=== PATIENT | female | born 1945 ===

== ENCOUNTER → 2023-04-04 14:18 | Outpatient (BNVA) | payer MEDICARE, MEDICAID, SELFPAY | PROVIDERS: PCP Internal Medicine; Visit Provider Nurse Practitioner Family | DX: R25.1 Tremor, unspecified (principal); R49.0 Dysphonia; F41.9 Anxiety disorder, unspecified; I65.29 Occlusion and stenosis of unspecified carotid artery | CPT/HCPCS: 99202 ==

== ENCOUNTER → 2023-08-11 14:30 | Outpatient (BNVA) | payer MEDICARE, MEDICAID, SELFPAY | PROVIDERS: Visit Provider Nurse Practitioner Family | DX: R56.9 Unspecified convulsions (principal); R25.1 Tremor, unspecified; R51.9 Headache, unspecified | CPT/HCPCS: 99212 ==

== ENCOUNTER 2025-06-09 13:54 | Outpatient (AMB) | payer MEDICARE, MEDICAID, SELFPAY ==
--- NOTE | 2025-06-09 13:53 | MHC.OFFVIS ---
Vital Signs 06/09/25 13:58 Weight 135 lb BP 120/70 Blood Pressure Location Rt brachial Position Sitting Pulse 78 Pulse Source Pulse Oximeter Pulse Oximetry (%) 98 Oxygen Delivery Method Room Air Intake Visit Reasons: Follow up Supply Chain Program Manager Required: No Accompanied by: Self / Same As Patient Allergies aspirin Allergy (Severe, Verified 06/09/25 14:03) Nausea and Vomiting Medication List - Last Reconciled 06/09/25 by Ying Burgos MD amlodipine 10 mg PO DAILY atorvastatin mg PO budesonide-formoterol 160-4.5 mcg/actuation 2 puffs inhalation BID carbidopa-levodopa 25-100 mg 1 tab PO BID 30 days cetirizine (All Day Allergy (cetirizine)) 10 mg PO DAILY PRN cholecalciferol (vitamin D3) 25 mcg PO DAILY cyanocobalamin (vitamin B-12) 1,000 mcg PO DAILY estradiol 0.01%(0.1mg/gram) vaginal gabapentin 100 mg PO DAILY hydrochlorothiazide 25 mg PO DAILY levetiracetam (Keppra) 1,000 mg PO BID 30 days losartan 50 mg PO DAILY magnesium oxide 400 mg PO BEDTIME 30 days melatonin 3 mg PO DAILY 30 days omeprazole 20 mg PO BID ondansetron HCl 4 mg PO Q6H PRN 30 days riboflavin (vitamin B2) 400 mg PO DAILY 30 days tiotropium bromide 2.5 mcg/actuation (Spiriva Respimat) inhalation trazodone 25 mg PO BEDTIME PRN HPI Comments Details: 79-yr-old female presents for f/u visit after 2 years .Patient is upset that she was not able to come for a follow up, she still reports lightheadedness . she has 2 episodes of possible seizures per month. she describes episodes of feeling lightheaded ,nauseous followed by slumping down. Her tremors are stable - no worsening. She reports that she is having more headaches- 1-2 /week. she has chronic sleep issues. She states she is only sleeping 2-3 hours per night. Denies daytime naps. She is often tired. Can wake up gasping. She is prone to dozing off in the evening while watching TV, then goes to bed around 12am and tosses snd turns. Always wakes up after c couple of hours, and then just rests/dozes in bed until she gets up around 5:30am. She had vascular consult f/u- she thinks that the plan is to just monitor her but is not sure. PFSH Medical History Insomnia Carotid stenosis Surgical History H/O: hysterectomy H/O laparoscopy Hx of colonoscopy Hx of appendectomy Family History Father Cancer Mother Tuberculosis Social History Alcohol intake: former Physical Exam Vital Signs: Last Vital Signs Pulse 78 06/09/25 13:58 BP 120/70 06/09/25 13:58 Pulse Ox 98 06/09/25 13:58 Oxygen Delivery Method Room Air 06/09/25 13:58 Const General: cooperative and no acute distress Orientation/consciousness: patient oriented x3 HEENT Head: Yes normocephalic Resp Effort & Inspection: normal respiratory effort and able to speak in complete sentences Neuro Other: Occassional stutter, hypophonia BUE postural tremor. General: patient oriented x3 and CN's II-XI intact bilaterally Motor exam (neuro): 5/5 motor strength present throughout General: patient oriented x3, gait normal and CN's II-XI intact bilaterally Cognition (Neuro): normal cognition Psych Appearance: grossly normal Mental Status: mental status grossly normal Affect: normal affect Attitude: cooperative Assessment & Plan Assessment & Plan (1) Seizure: Code(s): R56.9 - Unspecified convulsions Category: Medical (2) Tremor: Code(s): R25.1 - Tremor, unspecified Category: Medical (3) Headache: Code(s): R51.9 - Headache, unspecified Category: Medical Plan Continue Keppra 1000mg bid- for seizure. I will trial her on Mirtazapine 7,5 mg qhs Continue prn Zofran. Discussed strategies to improve sleep hygiene- avoid staying up late and falling asleep on the couch. Note- previous in-lab PSG in 2017- was normal. Will request vascular surgery notes- ? plan r/t carotid stenosis. f/u in 3-4 months or sooner prn. Orders: Referrals Vascular Surgery Referral I65.29 - Occlusion and stenosis of unspecified carotid artery Medications: New mirtazapine 7.5 mg PO BEDTIME 30 tabs 3RF Refilled levetiracetam (Keppra) 1,000 mg PO BID 60 tabs 6RF 30 days Discontinued riboflavin (vitamin B2) Discontinued Reason: Patient no longer taking 400 mg PO DAILY 30 days 30 tabs 6RF magnesium oxide may hold for loose stools Discontinued Reason: Patient no longer taking 400 mg PO BEDTIME 30 days 30 tabs 6RF carbidopa-levodopa 25-100 mg Discontinued Reason: Patient no longer taking 1 tab PO BID 30 days 60 tabs 6RF melatonin at 5pm Discontinued Reason: Patient no longer taking 3 mg PO DAILY 30 days 30 tabs 6RF Scribe Plan - Not visible on output: Reviewed possible medication side effects, including but not limited to drowsiness, dizziness. Coding Level of Care Code Est Pt Level 4 (40851) Complex EM visit Add On G2211 Diagnoses Seizure R56.9 Tremor R25.1 Headache R51.9
--- OUTSIDE RECORDS SUMMARY | 2025-06-09 13:57 | XMS_ITS | Clinical Summary ---
Author Organization [facility] Address [address] [place] [address] Care Team Providers Care Under Baster Name Role Phone Lisa Graves MD Primary Care Provider [phone] Allergies Active Allergy Reactions Criticality Noted Date Comments Aspirin 08/23/2013 Medications Medication Sig Dispensed Refills Start Date End Date Status omeprazole (PriLOSEC) 20 MG capsule TAKE ONE CAPSULE BY MOUTH TWICE A DAY 0 11/09/2018 Active hydroCHLOROthiazide (HYDRODIURIL) tablet 25 mg Take 25 mg by mouth. 0 01/01/2019 Active meloxicam (MOBIC) 7.5 MG tablet Take 7.5 mg by mouth. 0 Active ondansetron (ZOFRAN) 4 MG tablet Take 4 mg by mouth. 0 Active amLODIPine (NORVASC) tablet 5 mg Take 5 mg by mouth daily. 3 01/26/2019 Active benzonatate (TESSALON) 100 MG capsule 0 11/11/2018 Active carbidopa-levodopa (SINEMET) 25-100 MG per tablet Take 1 tablet by mouth. 0 Active levETIRAcetam (KEPPRA) 1000 MG tablet Take 1,000 mg by mouth. 0 Active prochlorperazine (COMPAZINE) 10 MG tablet Take 10 mg by mouth. 0 Active vitamin B-12 (CYANOCOBALAMIN) tablet 1000 mcg Take 1,000 mcg by mouth daily. 5 02/18/2019 Active levETIRAcetam (KEPPRA) 250 MG tablet Take 250 mg by mouth 2 (two) times a day. 5 03/17/2019 Active Social History Tobacco Use Types Packs/Day Years Used Date Smoking Tobacco: Former Cigarettes Q uit: 2017 Smokeless Tobacco: Never Alcohol Use Standard Drinks/Week Comments No 0 (1 standard drink = 0.6 oz pur e alcohol) Sex and Gender Information Value Date Recorded Sex Assigned at Not on file Gender Identity Not on file Sexual Orientation Not on file Last Filed Vital Signs Vital Sign Reading Time Taken Comments Blood Pressure - - Pulse - - Temperature - - Respiratory Rate - - Oxygen Saturation - - Inhaled Oxygen Concentration - - Weight 45.8 kg (101 lb) 04/05/2019 10:42 AM EDT Height 158.8 cm (5' 2.5 ) 04/05/2019 10:42 AM ED T Body Mass Index 18.18 04/05/2019 10:42 AM EDT Plan of Treatment Health Maintenance Due Date Last Done Comments Hepatitis C Screening 1945 COVID-19 Vaccine (#1) 06/29/1946 Depression Screening 1959 Preventative Health Evaluation 1965 DTap / Tdap / Td (1 - Tdap) 1966 Shingrix-Zoster Vaccine (1 of 2) 1997 Fall Risk Assessment 2012 Osteoporosis Screening (DEXA Scan) 2012 Pneumococcal Vaccine (2 of 2 - PPSV23 or PCV20) 04/09/2017 04/09/2016 RSV Adult > 60+ Yrs or Pregn ant (1 - 1-dose 75+ series) 2022 Influenza Vaccine (#1) 2025 Hepatitis B Vaccines Aged Out No long er eligible based on patient's age to complete this topic RSV Ped < 20 months Aged Out No longe r eligible based on patient's age to complete this topic Care Teams Under Baster Relationship Specialty Start Date End Date Lisa Graves MD [address] [address] PCP - General Internal Medicine 01/04/19
--- OUTSIDE RECORDS SUMMARY | 2025-06-09 13:57 | XMS_ITS | Clinical Summary ---
Author Organization [facility] Facility Address [address] [address] Care Team Providers Care Oil Exploration Engineer Name Role Phone Unavailable Primary Care Provider Unavailabl e Social History Tobacco Use Types Packs/Day Years Used Date Smoking Tobacco: Some Days Alcohol Use Standard Drinks/Week Comments No 0 (1 standard drink = 0.6 oz pur e alcohol) Comments Unknown Sex and Gender Information Value Date Recorded Sex Assigned at Not on file Legal Sex Female 5:03 PM EST Gender Identity Not on file Sexual Orientation Not on file Plan of Treatment Health Maintenance Due Date Last Done Comments Pneumococcal Vaccine: 50+ Ye ars (1 of 2 - PCV) 1966 Influenza Vaccine (#1) 2025 Hepatitis B Vaccine Aged Out No longe r eligible based on patient's age to complete this topic
[2025-06-09 13:58] VITALS: BP 120/70; PULSE 78; O2SAT 98
--- OUTSIDE RECORDS SUMMARY | 2025-06-09 13:58 | XMS_ITS | Encounter Summary ---
Author Organization [facility] Address [address] [place] [id number] Care Team Providers Care Yacht Master Name Role Phone Lisa Graves MD Primary Care Provider [phone] Encounter Details Date Type Department Care Team (Late Contact Info) Description 12/02/2024 Lab Requisition [facility] - Main Lab [address] [facility] [place] [address] Nicki Gentile PA [address] [place] [address] Frequency of micturition Social History Tobacco Use Types Packs/Day Years Used Date Smoking Tobacco: Former Cigarettes Q uit: 07/12/2019 Smokeless Tobacco: Never Alcohol Use Standard Drinks/Week Comments Not Currently 0 (1 standard drink = 0.6 oz pur e alcohol) Comments Unknown Sex and Gender Information Value Date Recorded Sex Assigned at Not on file Legal Sex Female 11:34 AM EST Gender Identity Not on file Sexual Orientation Not on file documented as of this encounter Plan of Treatment Upcoming Encounters Date Type Department Care Team (Late Contact Info) Description 11/07/2025 2:30 PM EST Office Visit Internal Medicine - [place] [address] [place] [phone] iLsa Graves MD [address] [facility] [address] [place] [address] documented as of this encounter Procedures Procedure Name Priority Date/Time Associated Diagnosis Comments CULTURE URINE Routine 12/02/2024 1:00 PM EST Frequency of micturition documented in this encounter Results * (ABNORMAL) Culture urine (12/02/2024 1:00 PM EST) Culture, Urine 50,000-100, 000 CFU/mL Proteus mirabilis(A ) TAMI 12/04/2024 10:48 AM EST [facility] Comment: Edited result: Previously reported as Proteus species on 12/03/2024 at 1338 EST. Urine Urine specimen obtained by clean catch procedure / Unknown 12/02/2024 1:00 PM EST 12/02/2024 5:43 PM EST Narrative Organism Antibiotic Method Susceptibility Proteus mirabilis Ampicillin/Sulbactam TAMI <=2 ug/ml: Susceptible Proteus mirabilis Piperacillin/Tazobactam TAMI <=4 ug/ml: Susceptible Proteus mirabilis Cefazolin (Urine) TAMI 4 ug/ml: Susceptible Proteus mirabilis Cefoxitin TAMI 16 ug/ml: Intermediate Proteus mirabilis Ceftazidime TAMI <=0.5 ug/ml: Susceptible Proteus mirabilis Ceftriaxone TAMI <=0.25 ug/ml: Susceptible Proteus mirabilis Cefepime TAMI <=0.12 ug/ml: Susceptible Proteus mirabilis Meropenem TAMI 1 ug/ml: Susceptible Proteus mirabilis Amikacin TAMI 4 ug/ml: Susceptible Proteus mirabilis Gentamicin TAMI <=1 ug/ml: Susceptible Proteus mirabilis Ciprofloxacin TAMI <=0.06 ug/ml: Susceptible Proteus mirabilis Levofloxacin TAMI <=0.12 ug/ml: Susceptible Proteus mirabilis Nitrofurantoin TAMI 128 ug/ml: Resistant Proteus mirabilis Trimethoprim/Sulfamethoxazole TAMI >=320 ug/ml: Resistant us [facility] MICROBIOLOGY - GENERAL ORD ERABLES Final Result [facility] [address] [place] [address], documented in this encounter Visit Diagnoses Diagnosis Frequency of micturition Urinary frequency documented in this encounter Care Teams Yacht Master Relationship Specialty Start Date End Date Lisa Graves MD [address] [phone] PCP - General Internal Medicine 08/18/18 documented as of this encounter
--- OUTSIDE RECORDS SUMMARY | 2025-06-09 13:58 | XMS_ITS ---
Author Name [facility] Organization Unknown Care Team Organization Name Specialty Phone Email Start Date End Da [facility] Primary Care 09/24/2022 07/05/20 24
--- OUTSIDE RECORDS SUMMARY | 2025-06-09 13:58 | XMS_ITS | Data Portability ---
Author Organization [facility] Address [address] [place] [address] Care Team Providers Care Rubber Insulator Name Role Phone KVNG NG Primary Care Provider Assessment No assessment recorded. Plan of Treatment Reminders Order Date Submit Date Provider Last Modified By Organization Details Last Modified Time Details Appointments RECHECK 15 2024 02:30P M Josh Pittman PA-C Not available Not available Not available Lab None recorded. Referral None recorded. Procedures None recorded. Surgeries None recorded. Imaging None recorded. Medication Orders diclofena c 1 % topical gel 2024 025 [email or web address] 1 [id number], [address] [place] [address], [id number], 04/28/2025 08:56:36 diclofena c 1 % topical gel 2024 025 FREDY [id number], [address] [place] [address], [id number], 11/18/2024 15:23:28 Patient TargetsNo targets recorded. Patient InstructionsNo instructions recorded. Reason for Referral None Reported. Problems Name Problem SNOMED Code Status Onset Date Resolution Date Notes Provider Name and Address Organization Details Recorded Time No complaints [id number] Active Status : 'A'; Not Available [facility] 4 09:26:52 Problem Notes None recorded. Procedures Surgical History Date Name Laterality Status Provider Name and Address Organization Details Recorded Time 5 Knee Kenalog 40 1cc Injection, Bilateral completed Josh Pittman PA-C [address] [facility], [place], [address], [facility] 04/21/2025 16:07:08 5 Knee Kenalog 40 1cc Injection, Bilateral completed Ingrid Nichols PA-C [address], [place], [address], [facility] 11/18/2024 15:22:45 4 Knee Kenalog 40 1cc Injection, Bilateral completed Ingrid Nichols PA-C [address], [place], [address], [facility] 07/27/2024 13:27:08 4 Knee Kenalog 40 1cc Injection, Bilateral completed Ingrid Nichols PA-C [address], [place], [address], [facility] 04/23/2024 13:46:02 Imaging Results None recorded. Procedure Notes None recorded. Medical Equipment None Reported. Allergies Allergen ID Allergen Name Allergen Category Reaction Reaction Severity Criticality Documentation Date Start Date Code Code System Note Provider Name and Address Organization Details Recorded Time 82363 aspirin medicatio n Not available Not available Not available 01/19/20242014 1191 RxNorm Aller gyRea ction : 'Skin React ion'; Not Available [facility] 4 12:44:51 Medications Name Sig Start Date Stop Date Status Note LastModified by Organization Details LastModified Time atorvastati n 20 mg tablet TAKE 1 TABLET BY MOUTH EVERY DAY active Not Available Not Available No t Available trazodone 50 mg tablet TAKE 1 TABLET BY MOUTH EVERYDAY AT BEDTIME active Not Available Not Available No t Available ondansetron HCl 4 mg tablet TAKE 1 TABLET BY MOUTH EVERY 6 HOURS NEEDED FOR NAUSEA AND VOMITING FOR 30 DAYS 07/27 completed Not Available Not Available Not Available famotidine 40 mg tablet TAKE 1 TABLET BY MOUTH 2 TIMES DAILY FOR 360 DAYS. active Not Available Not Available No t Available prednisone 20 mg tablet TAKE 2 TABLETS (40 MG TOTAL) BY MOUTH ONE TIME EACH DAY FOR 5 DAYS. active Not Available Not Available No t Available alendronate 70 mg tablet PLEASE SEE ATTACHED FOR DETAILED DIRECTION S active Not Available Not Available No t Available Vitamin B-12 500 mcg tablet TAKE 1 TABLET BY MOUTH EVERY DAY active Not Available Not Available No t Available trazodone 100 mg tablet TAKE 1 TABLET BY MOUTH EVERYDAY AT BEDTIME active Not Available Not Available No t Available amlodipine 10 mg tablet TAKE 1 TABLET BY MOUTH 1 TIME EACH DAY. active Not Available Not Available No t Available cephalexin 500 mg capsule TAKE 1 CAPSULE BY MOUTH EVERY 12 HOURS active Not Available Not Available No t Available pantoprazol e 40 mg tablet,yvonne yed release TAKE 1 TABLET BY MOUTH EVERY DAY (*DISCONT INUE FAMOTIDIN E*) active Not Available Not Available No t Available gabapentin 100 mg capsule TAKE 1 CAPSULE BY MOUTH THREE TIMES A DAY active Not Available Not Available No t Available estradiol 0.01% (0.1 mg/gram) vaginal cream USE 1 GRAM VAGINALLY 3 TIMES PER WEEK DIRECTED active Not Available Not Available No t Available carbidopa 25 mg-levodopa 100 mg tablet TAKE 1 TABLET BY MOUTH THREE TIMES A DAY 07/27 completed Not Available Not Available Not Available naproxen 500 mg tablet TAKE 1 TABLET BY MOUTH 2 TIMES DAILY (WITH MEALS) FOR 360 DAYS. active Not Available Not Available No t Available Senna Plus 8.6 mg-50 mg tablet TAKE 1 TABLET BY MOUTH TWICE A DAY active Not Available Not Available No t Available Symbicort 160 mcg-4.5 mcg/actuati on HFA aerosol inhaler PLEASE SEE ATTACHED FOR DETAILED DIRECTION S 07/27 completed Not Available Not Available Not Available diclofenac 1 % topical gel APPLY 2 GRAMS TO THE AFFECTED AREA(S) BY TOPICAL ROUTE 4 TIMES PER DAY active Not Available Not Available No t Available Spiriva Respimat 2.5 mcg/actuati on solution for inhalation TAKE 2 PUFFS BY MOUTH TWICE A DAY active Not Available Not Available No t Available clopidogrel bisulfate (bulk) 100 % powder Clopidogr el Bisulfate 300MG Tablet 07/27 completed Statu s: 'Curr ent'; Not Available Not Available Not Available Vitals Date Recorded Body height Body mass index (BMI) Body weight Provider Name and Address Organization Details Last Updated DateTime 11/18/2024 158.75 cm 20.7 kg/m2 30978.12 g Nilo Irvin [place] [facility] 11/18/2024 14:49:23 Date Recorded Body height Body mass index (BMI) Body weight Provider Name and Address Organization Details Last Updated DateTime 04/21/2025 158.75 cm 20.7 kg/m2 09689.12 g Melany Hirsch [facility] 04/21/2025 15:21:02 Date Recorded Body height Provider Name an d Address Organization Details Last Updated DateTime 04/23/2024 158.75 cm JALEN SRINIVASAN [facility] 04/23/2024 13:24:43 Date Recorded Body height Provider Name an d Address Organization Details Last Updated DateTime 07/27/2024 158.75 cm alexia nelson [facility] 07/27/2024 13:03:19 Social History None recorded. Functional Status None recorded. Mental Status None recorded. Family History Nothing Reported. Medical History Condition Response Coronary Artery Disease N Anxiety/Depression N Emphysema N COPD N Pacemaker N Vascular Disease N Heart Trouble N Gastrointestinal Disease N Autoimmune disease N Inflammatory Joint disease N Orthotics N Arthritis Y Blood Clot N Acid Reflux (GERD) N Cancer N Stroke N Circulation Problems N Rheumatoid Arthritis N Arrhythmia N Headaches Y Fibromyalgia N Allergies/Hayfever N Breathing or lung disorders Y Nerve Disorders N Thyroid Problems N Kidney/Bladder Problems N Anemia N Heart Attack (CO) N Cholesterol N Diabetes N Bleeding Disorder N Seizures/Epilepsy N AIDS/HIV N Congestive Heart Failure (CHF) N Asthma N Peripheral Vascular Disease N Sleep Apnea Y Hepatitis N Heart Disease N Pulmonary Embolism N Hypertension Y Osteoporosis N Gynecological HistoryNo gynecological history recorded. Obstetrics History GPAL:G 0 P 0 0 0 0 Past Encounters Encounter ID Performer Location Encounter Start Date Encounter Closed Date Diagnosis/Indication Diagnosis SNOMED-CT Code Diagnosis ICD10 Code Diagnosis Note [id number] IRAS[facility] Briones [address] [place] [address] 04/23/2024 13:17:02 05/24/2024 07:30:41 Bilateral osteoarthritis of knees [id number] 29671 M17.0 [id number] IRASEMA Briones [address] [place] [address] 07/27/2024 12:42:56 08/17/2024 13:45:02 Bilateral osteoarthritis of knees [id number] 31156 M17.0 [id number] IRASEMA Briones - [place] [address] [place] [address] 11/18/2024 14:31:45 12/01/2024 15:39:57 Primary gonarthrosis, bilateral [id number] M17.0 [id number] IRASEMA Chacon [address] [place] [address] 04/21/2025 15:06:11 05/02/2025 14:42:05 Primary gonarthrosis, bilateral 987571896 M17.0 Health Concerns Section Related Observation LastModified by Organization Detai ls LastModified Time None Recorded Concern Status LastModified by Organization Details LastModified Time None Recorded Advance Directives Directive None Recorded Payers Insurance Date Sequence Insurance Name Policy Number Policy Tinajero Covered Member ID Tinajero Member ID Guarantor Name 04/21/2025 1 [place] [employer] Padmini Cordovaak [id number] Padmini Billingsley Bodziak 11/16/2024 1 [place] [employer] Padmini Chunziak [id number] Padmini Billingsley Bodziak 04/21/2025 2 [place] [facility] Padmini E Bodziak [id number] Padmini Billingsley Bodjeromyak Notes Date Note Type Note Provider Name and Address Organization Details Recorded Time 04/23/2024 text/html I am seeing the patient today under the supervision of Dr. Rae who was available but who did not see the patient. HPI: Patient presenting today with known osteoarthritis of bilateral knees. Has been responding favorably to conservative treatment. Here today for a cortisone injection. Denies recent injury. No new systemic complaints. Past family, medical, social history and review of systems has been reviewed, updated, and is located in the patient s chart. Examination: Examination of bilateral knees reveals no effusion, erythema, or warmth. Injection site benign. Decreased range of motion. Point tender lateral joint line. Calf is soft and nontender. 5/5 strength knee flexion and extension. Impression: Bilateral knee osteoarthritis Plan: The patient was thoroughly counseled today regarding their knee condition, its natural history, and conservative versus surgical treatment options. The patient is interested in receiving an injection with corticosteroid. Bilateral knees were prepped sterilely and an injection was administered utilizing 40mg of Kenalog and 4cc of 0.25% Marcaine. The patient tolerated the procedure well. Post-injection precautions were discussed. Recommended avoiding strenuous activity over the next 24-48 hours. Encouraged elevation of the leg, applying ice, and taking over the counter medication as needed. The patient is aware that the injection can be repeated as often as every 3 months. Ingrid Nichols PA-C [address], [place], [address], [facility] 04/23/2024 13:46:19 07/27/2024 text/html I am seeing the patient today under the supervision of Dr. Jones who was available but who did not see the patient. HPI: Patient presenting today with known osteoarthritis of bilateral knees. Has been responding favorably to conservative treatment. Here today for a cortisone injection. Denies recent injury. No new systemic complaints. Past family, medical, social history and review of systems has been reviewed, updated, and is located in the patient s chart. Examination: Examination of bilateral knees reveals no effusion, erythema, or warmth. Injection site benign. Decreased range of motion. Point tender medial joint line. Calf is soft and nontender. 5/5 strength knee flexion and extension. Impression: Bilateral knee osteoarthritis Plan: The patient was thoroughly counseled today regarding their knee condition, its natural history, and conservative versus surgical treatment options. The patient is interested in receiving an injection with corticosteroid. Bilateral knees were prepped sterilely and an injection was administered utilizing 40mg of Kenalog and 4cc of 0.25% Marcaine. The patient tolerated the procedure well. Post-injection precautions were discussed. Recommended avoiding strenuous activity over the next 24-48 hours. Encouraged elevation of the leg, applying ice, and taking over the counter medication as needed. The patient is aware that the injection can be repeated as often as every 3 months. Ingrid Nichols PA-C [address], [place], [address], [facility] 07/27/2024 13:27:40 11/18/2024 text/html I am seeing the patient today under the supervision of Dr. Jones who was available but who did not see the patient. HPI: Patient presenting today with known osteoarthritis of bilateral knees. Has been responding favorably to conservative treatment. Here today for a cortisone injection. Denies recent injury. No new systemic complaints. Past family, medical, social history and review of systems has been reviewed, updated, and is located in the patient s chart. Examination: Examination of bilateral knees reveals no effusion, erythema, or warmth. Injection site benign. Decreased range of motion. Point tender medial joint line. Calf is soft and nontender. 5/5 strength knee flexion and extension. Impression: Bilateral knee osteoarthritis Plan: The patient was thoroughly counseled today regarding their knee condition, its natural history, and conservative versus surgical treatment options. The patient is interested in receiving an injection with corticosteroid. Bilateral knees were prepped sterilely and an injection was administered utilizing 40mg of Kenalog and 4cc of 0.25% Marcaine. The patient tolerated the procedure well. Post-injection precautions were discussed. Recommended avoiding strenuous activity over the next 24-48 hours. Encouraged elevation of the leg, applying ice, and taking over the counter medication as needed. The patient is aware that the injection can be repeated as often as every 3 months. Ingrid Nichols PA-C [address] [place] [address] [address], [place], [address], [facility] 11/18/2024 15:24:01 04/21/2025 text/html I am seeing the patient today under the supervision of Who was available but who did not see the patient. HPI: Patient comes in for recheck of bilateral knee pain. Has known osteoarthritis in the lateral compartment of the knee(s). Been treated conservatively with cortisone injection to this point with 4 weeks relief of symptoms. No new injury or modalities. Past family, medical, social history and review of systems has been reviewed, updated and is located in the patient s chart. Examination:The patient is well appearing and in no apparent distress. Alert and oriented x3. Vital signs per intake sheet. Examination of the bilateral knee reveals no effusion erythema or warmth. Decreased range of motion. Lower extremity valgus deformity. Point tender over the lateral joint line. Calf soft and nontender. 4+/5 strength of knee flexion extension. Impression: Osteoarthritis Plan: Nature of the diagnosis discussed with the patient today. Both surgical and nonsurgical options were reviewed. This point recommend a repeat cortisone injection. Patient agreed. anterior lateral portal was used. See prodecure note. Follow-up with us in 3 months for discussion of continued conservative management versus total joint arthroplasty. Josh Pittman PA-C [address], [place], [address], [facility] 04/21/2025 16:07:27 OBGyn Episode No OBEpisode recorded.
== END 2025-06-09 14:28 | disposition home or self-care (01) ==
LOC: HO.HSMS 13:55
PROVIDERS: PCP Internal Medicine; Supervising Provider Psychiatry & Neurology Neurology; Visit Provider Psychiatry & Neurology Neurology
DX: R56.9 Unspecified convulsions (principal); R25.1 Tremor, unspecified; R51.9 Headache, unspecified
CPT/HCPCS: 99214; G2211

== ENCOUNTER → 2025-06-09 13:54 | Outpatient (BNVA) | payer MEDICARE, MEDICAID, SELFPAY | PROVIDERS: PCP Internal Medicine; Visit Provider Psychiatry & Neurology Neurology | DX: R42 Dizziness and giddiness (principal); R25.1 Tremor, unspecified | CPT/HCPCS: 99212 ==

== ENCOUNTER 2025-08-11 13:23 | Outpatient (AMB) | payer MEDICARE, MEDICAID, SELFPAY ==
--- NOTE | 2025-08-11 13:32 | A.OFFVIS_ITS ---
Vital Signs 08/11/25 13:36 Height 5 ft 2.5 in Weight 139 lb BMI 25.0 BP 126/80 Blood Pressure Location Rt brachial Position Sitting Pulse 85 Pulse Source Pulse Oximeter Pulse Oximetry (%) 98 Intake Visit Reasons: 2mnth follow up Intake Note: Patient presents follow up Seizure/tremor medication. Vascular not booked yet. Patient states she is getting lightheaded everyday. Tremors are are 8/10. Accompanied by: Friend Allergies aspirin Allergy (Severe, Verified 08/11/25 13:39) Nausea and Vomiting HPI Comments Details: 79-yr-old female presents for f/u visit after 2 years. Gayatri her best friend is here with her today and helps with history. She had 2 episodes of seizures per month. She describes episodes of feeling lightheaded, nauseous followed by slumping down on the floor. She reports since starting Keppra 1000mg PO BID, she has not had these episodes. Pt reports light headedness, and tremors of upper extremites. She has SOB with going up the stairs, walking or with normal conversations. She was prescribed two inhalers Spiriva and Formeterol. with budesonide, however she forgets to take them as needed with onset of panic attacks. She relaxes when she counts to 20 and that helps her with the attacks. Her tremors are stable - not worsening. She reports that she is having more headaches- 1-2 /week and chronic sleep issues with 2-3 hours of sleep per night. She goes to bed at 11pm and is up every two hours. She denies daytime naps. She is fatigued, wakes up gasping, snoring and choking for air. She is prone to dozing off in the evening while watching TV, and goes to bed at midnight. She always wakes up after a couple of hours, and then just rests/dozes in bed until she gets up around 5:30am. She had vascular consult f/u- she thinks that the plan is to just monitor with endovascular in Sep 2025. PFSH Medical History Insomnia Carotid stenosis Surgical History H/O: hysterectomy H/O laparoscopy Hx of colonoscopy Hx of appendectomy Family History Father Cancer Mother Tuberculosis Social History Alcohol intake: former Physical Exam Vital Signs: Last Vital Signs Pulse 85 08/11/25 13:36 BP 126/80 08/11/25 13:36 Pulse Ox 98 08/11/25 13:36 BMI result Body Mass Index 25.0 Const General: cooperative and no acute distress Orientation/consciousness: patient oriented x3 Limitations: ambulation with cane HEENT Face and sinus: Yes face symmetric Teeth and gingiva: other (mallampti 4) Neck Neck: Yes full ROM Resp Effort & Inspection: normal respiratory effort and able to speak in complete sentences Neuro Other: poor historian General: patient oriented x3 and moves all extremities Gait exam (Neuro): Wide-based gait present and Assistive device used Motor exam (neuro): Abnormal motor strength present and Abnormal muscle tone present Psych Appearance: well kempt Affect: normal affect Thought process: Normal thought process present Assessment & Plan Assessment & Plan (1) Excessive daytime sleepiness: Code(s): G47.19 - Other hypersomnia Category: Medical (2) Anemia: Code(s): D64.9 - Anemia, unspecified Category: Medical Qualifiers: Anemia type: iron deficiency Iron deficiency anemia type: other iron deficiency Qualified Code(s): D50.8 - Other iron deficiency anemias (3) Headache: Code(s): R51.9 - Headache, unspecified Category: Medical Qualifiers: Headache type: unspecified Headache chronicity pattern: chronic headache Intractability: intractable Qualified Code(s): R51.9 - Headache, unspecified; G89.29 - Other chronic pain (4) Osteoporosis: Code(s): M81.0 - Age-related osteoporosis without current pathological fracture Category: Medical Qualifiers: Osteoporosis type: age-related Presence of current pathological fracture: without current pathological fracture Qualified Code(s): M81.0 - Age- related osteoporosis without current pathological fracture Plan PSG in lab she has asthma on two inhalers labs to r/o deficiencies MMSE at next visit, Monitor tremor Orders: Orders RT PSG in-lab sleep study Today G47.19 - Other hypersomnia, M81.0 - Age-related osteoporosis without current pathological fracture Medications: Changed From cholecalciferol (vitamin D3) 25 mcg PO DAILY M81.0 - Age-related osteoporosis without current pathological fracture To cholecalciferol (vitamin D3) 25 mcg PO DAILY 90 caps 3RF low vitamin d 3 mon ths MDD 1000unit M81.0 - Age-related osteoporosis without current pathological fracture From cyanocobalamin (vitamin B-12) 1,000 mcg PO DAILY D64.9 - Anemia, u nspecified To cyanocobalamin (vitamin B-12) 1,000 mcg PO DAILY 90 caps 3RF anemia 3 months MDD 1000mcg D64.9 - Anemia, unspecified Refilled levetiracetam (Keppra) 1,000 mg PO BID 60 tabs 6RF 30 days mirtazapine 7.5 mg PO BEDTIME 30 tabs 3RF Coding Level of Care Code New Pt Level 4 (01860) Diagnoses Excessive daytime sleepiness G47.19 Other iron deficiency anemia D50.8 Anemia type: iron deficiency Iron deficiency anemia type: other iron deficiency Chronic intractable headache, unspecified headache type R51.9; G89.29 Headache type: unspecified Headache chronicity pattern: chronic headache Intractability: intractable Age-related osteoporosis without current pathological fracture M81.0 Osteoporosis type: age-related Presence of current pathological fracture: without current pathological fracture
[2025-08-11 13:36] VITALS: BP 126/80; PULSE 85; O2SAT 98; BMI 25.0
--- OUTSIDE RECORDS SUMMARY | 2025-08-11 17:59 | XMS_ITS | Encounter Summary ---
Author Organization [facility] Address [address] [place] [address] Care Team Providers Care Field Seismologist Name Role Phone Lisa Graves MD Primary Care Provider [phone] Encounter Details Date Type Department Care Team (Late Contact Info) Description 12/02/2024 Lab Requisition [facility] [address] [facility] [place] [id number] Nicki Gentile PA [address] [place] [address] Frequency of micturition Social History Tobacco Use [...] Department Care Team (Late Contact Info) Description 10/21/2025 2:30 PM EST Consult Vascular Surgery - [facility] [address] [place] [phone] Santhosh Urrutia MD [address] [place] [phone] 11/07/2025 2:30 PM EST Office Visit Internal Medicine - [facility] [address] [facility] [address] [place] [phone] Lisa Graves MD [address] [facility] [address] [place] [address] documented as of this encounter Procedures Procedure Name Priority Date/Time Associated Diagnosis Comments CULTURE URINE Routine 12/02/2024 1:00 PM EST Frequency of micturition documented in this encounter Results * (ABNORMAL) Culture urine (12/02/2024 1:00 PM EST) Culture, Urine 50,000-100, 000 CFU/mL Proteus mirabilis(A ) TAMI 12/04/2024 10:48 AM EST [facility] Comment: Edited result: Previously reported [...] MICROBIOLOGY - GENERAL ORD ERABLES Final Result [facility] [address] [place] [address], documented in this encounter Visit Diagnoses Diagnosis Frequency of micturition Urinary frequency documented in this encounter Care Teams Field Seismologist Relationship Specialty Start Date End Date Lisa Graves MD [address] [facility] [address] [place] [address] PCP - General Internal Medicine 08/18/18 documented as of this encounter
--- OUTSIDE RECORDS SUMMARY | 2025-08-11 17:59 | XMS_ITS | Clinical Summary ---
Author Organization [facility] Address [address] [place] [address] Care Team Providers Care Clinic Specialist Name Role Phone Lisa Graves MD Primary Care Provider [phone] Allergies Active Allergy Reactions Criticality Noted Date [...] age to complete this topic Care Teams Clinic Specialist Relationship Specialty Start Date End Date Lisa Graves MD [address] [address] PCP - General Internal Medicine 01/04/19
--- OUTSIDE RECORDS SUMMARY | 2025-08-11 17:59 | XMS_ITS | Clinical Summary ---
Author Organization [address] Address [address] [place] [address] Phone Care Team Providers Care Cafeteria Team Leader Name Role Phone Lisa Graves MD Primary Care Provider [phone] Allergies Active Allergy Reactions Criticality Noted Date Comments Aspirin Nausea And Vomiting 08/23/2013 Medications alendronate (FOSAMAX) 70 mg tablet Take 1 Tablet by mouth every 7 days for 360 days. Take on an empty stomach and stay upright for 30 minutes. 4 Active traZODone (DESYREL) 100 mg tablet Take 1 Tablet by mouth at bedtime. 4 Active pantoprazole (PROTONIX) 40 mg EC tablet Take 1 Tablet by mouth daily. 4 Active senna-docusate (PERICOLACE) 8.6-50 mg per tablet Take 1 Tablet by mouth 2 times daily. 4 Active gabapentin (NEURONTIN) 100 mg capsule Take 1 Capsule by mouth 3 times daily. 4 Active levETIRAcetam (KEPPRA) 250 mg tablet 9 Active cholecalciferol (VITAMIN D-3) 25 mcg (1,000 unit) capsule Take 1,000 Units by mouth daily. Active hyoscyamine (ANASPAZ,LEVSIN ) 0.125 mg tablet Take 0.125 mg by mouth every 4 hours as needed. Active levETIRAcetam (KEPPRA) 1,000 mg tablet Take 1,000 mg by mouth 2 times daily. Active primidone (MYSOLINE) 50 mg tablet Take 50 mg by mouth 3 times daily. Active cyanocobalamin (VITAMIN B-12) 500 mcg tablet Take 1 tablet (500 mcg total) by mouth 1 (one) time each day. 30 each 11 5 01/29/20 26 Active diclofenac (VOLTAREN) 1 % topical gel Apply 2 g topically 2 (two) times a day. 100 g 3 5 Active amLODIPine (NORVASC) 10 mg tablet Take 1 tablet (10 mg total) by mouth 1 (one) time each day. 90 tablet 3 5 Active atorvastatin (LIPITOR) 20 mg tablet Take 1 tablet (20 mg total) by mouth 1 (one) time each day. 90 tablet 3 5 Active tiotropium (Spiriva Respimat) 2.5 mcg/actuation inhalation spray Inhale 2 puffs by mouth 1 (one) time each day. 1 each 2 5 Active budesonide-form oteroL (SYMBICORT) 160-4.5 mcg/actuation inhaler Inhale 2 puffs by mouth 2 (two) times a day. Rinse mouth with water after use to reduce aftertaste and incidence of candidiasis. Do not swallow. 1 each 3 5 Active losartan (Cozaar) 50 mg tablet Take 1 tablet (50 mg total) by mouth 1 (one) time each day. 90 each 2 5 Active Active Problems Problem Noted Date Diagnosed Date Chronic headaches 07/19/2021 Osteoporosis 12/04/2018 Assessment & Plan (06/03/2025 10:28 PM EDT): Chronic obstructive pulmonar y disease ([facility] V24, [facility] V28) 08/14/2018 Assessment & Plan (06/03/2025 10:28 PM EDT): Hypertension 08/14/2018 Assessment & Plan (06/03/2025 10:28 PM EDT): Constipation 07/13/2018 IBS (irritable bowel syndrome) 07/13/2018 Seizure disorder ([facility] V24, [facility] V28) 04/17 Tremor 04/28/2018 Overview (10/25/2024): Parkinson's per 02/07/17 OV note Assessment & Plan (06/03/2025 10:28 PM EDT): Orders: Ambulatory referral to Neurology; Future Urinary incontinence 12/26/2017 Colon polyp 06/18/2017 Diverticulosis 06/18/2017 Esophageal hiatal hernia 06/18/2017 Vitamin B12 deficiency 04/27/2017 Assessment & Plan (06/03/2025 10:28 PM EDT): Pulmonary nodules 02/07/2017 GERD (gastroesophageal reflux disease) 7 Insomnia 11/02/2014 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 [address] [place] [address] Sasha Rios MA 06/03/2025 2:00 PM EDT Office Visit Internal Medicine - [place] 175 [facility] [address] [place] [phone] Lisa Graves MD Primary hypertension (Primary Dx); Chronic obstructive pulmonary disease, unspecified COPD type (CMS/HCC V24, [facility] V28); Vitamin B12 deficiency; Osteoporosis, unspecified osteoporosis type, unspecified pathological fracture presence; Bilateral carotid artery stenosis; Tremor; Encounter for subsequent annual wellness visit (AWV) in Medicare patient 06/02/2025 Telephone Internal Medicine - [place] 175 [facility] [address] [place] [phone] Jamarcus Richards MA from Last 3 Months Immunizations Name Administration Dates Next Due Pneumococcal conjugate 13 va lent (Prevnar 13, PCV13) 2mo and older 04/09/2016 Surgical History Surgery Date Site/Laterality Comments APPENDECTOMY PROCEDURE: HISTORICAL APPENDECTOMY COLONOSCOPY PROCEDURE: HISTORICAL COLONOSCOPY OTHER SURGICAL HISTORY PROCEDURE: HISTORY OTHER; COMMENT: Scene Shifter laparoscopy with aspiration Medical History Medical History Date Comments Chronic obstructive pulmonar y disease (CMS/HCC V24, CMS/HCC V28) 08/14/2018 DX:Chronic obstructive pulm onary disease (HCC) Colon polyp 06/18/2017 DX:Colon polyp Constipation 07/13/2018 DX:Constipation Diverticulosis 06/18/2017 DX:Diverticulosi s Esophageal hiatal hernia 06/18/2017 DX:Esop hageal hiatal hernia GERD (gastroesophageal reflux disease) 01/15/2017 DX:GERD (gastroesophageal reflux disease) History of pancreatitis 11/03/2017 DX:Histo ry of pancreatitis Hypertension 08/14/2018 DX:Hypertension 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 DX:Hype rtonicity of bladder IBS (irritable bowel syndrome) 07/13/2018 D X:IBS (irritable bowel syndrome) Insomnia 11/02/2014 DX:Insomnia Pulmonary nodules 02/07/2017 DX:Pulmonary n odules Seizure disorder (CMS/HCC V2 4, CMS/HCC V28) 04/28/2018 DX:Seizure disorder (HCC) Tremor 04/28/2018 DX:Tremor Urinary incontinence 12/26/2017 DX:Urinary incontinence Vitamin B12 deficiency 04/27/2017 DX:Vitami n B12 deficiency Vitamin D deficiency 05/12/2013 DX:Vitamin D deficiency Osteoporosis 12/04/2018 DX:Osteoporosis Social History Tobacco Use Types Packs/Day Years Used Date Smoking Tobacco: Former Cigarettes Q uit: 07/12/2019 Smokeless Tobacco: Never Tobacco Cessation:Counseling Given: Not Answered Alcohol Use Standard Drinks/Week Comments Not Currently 0 (1 standard drink = 0.6 oz pur e alcohol) Comments Unknown Sex and Gender Information Value Date Recorded Sex Assigned at Not on file Legal Sex Female 11:34 AM EST Gender Identity Not on file Sexual Orientation Not on file Obstetrics History Last Filed Vital Signs Vital Sign Reading Time Taken Comments Blood Pressure 130/82 06/03/2025 2:21 PM EDT Pulse 81 06/03/2025 2:21 PM EDT Temperature 36.8 C (98.2 F) 06/03/2025 2:21 PM EDT Respiratory Rate 18 06/03/2025 2:21 PM EDT Oxygen Saturation 98% 06/03/2025 2:21 PM EDT Inhaled Oxygen Concentration - - Weight 59 kg (130 lb) 06/03/2025 2:21 PM EDT Height 157.5 cm (5' 2 ) 06/03/2025 2:21 PM EDT Body Mass Index 23.78 06/03/2025 2:21 PM EDT Plan of Treatment Upcoming Encounters Date Type Department Care Team (Late st Contact Info) Description 10/21/2025 2:30 PM EST Consult Vascular Surgery - [place] [address] [facility] [address] [place] [phone] Santhosh Urrutia MD [address] [place] [address] 11/07/2025 2:30 PM EST Office Visit Internal Medicine - [place] 175 [facility] [address] [place] [address] Lisa Graves MD 175 [facility] [address] [place] [address] Health Maintenance Due Date Last Done Comments DTaP,Tdap,and Td Vaccines (1 - Tdap) 1964 Pneumococcal Vaccine: 50+ Years (2 of 2 - PPSV23) 06/04/2016 04/09/2016 Falls Risk Assessment 10/26/2022 Hepatitis C Screening 10/26/2022 Osteoporosis Screening (Bone Density Screening) 10/26/2022 Social Influencers of Health Screening 10/26/2022 RSV Immunization Adult Patients (1 - 1-dose 75+ series) 2022 COVID-19 Vaccine ( - 2023-2 5 season) 2025 Influenza Vaccine (#1) 2025 Hypertension/CHF/CAD Annual BMP Blood Test 02/09/2026 02/09/2025, 07/30/2024, 07/30/2024 Medicare Annual Wellness Visit 06/03/2026 06/03/2025 Cholesterol Screening (Lipid Panel) 02/09/2030 02/09/2025, 07/30/2024, 07/30/2024 Zoster Vaccines Completed 09/10/2023, 07/09/2023 Depression Screening Completed 06/03/2025, 07/30/2024 HIB Vaccines Aged Out No longer eligi ble based on patient's age to complete this topic HPV Vaccines Aged Out No longer eligi ble based on patient's age to complete this topic Hepatitis A Vaccines Aged Out No long er eligible based on patient's age to complete this topic Hepatitis B Vaccines Aged Out No long er eligible based on patient's age to complete this topic IPV Vaccines Aged Out No longer eligi ble based on patient's age to complete this topic MMR Vaccines Aged Out No longer eligi ble based on patient's age to complete this topic Meningococcal ACWY Vaccine Aged Out N o longer eligible based on patient's age to complete this topic Meningococcal B Vaccine Aged Out No l onger eligible based on patient's age to complete this topic RSV Immunization Patients Under 20 months Aged Out No longer eligible b ased on patient's age to complete this topic Varicella Vaccines Aged Out No longer eligible based on patient's age to complete this topic Procedures Procedure Name Priority Date/Time Associated Diagnosis Comments COMPREHENSIVE METABOLIC PANEL Routine 02/09/2025 11:10 AM EDT Seizure disorder ([facility] V24, [facility] V28) Tremor Primary hypertension Vitamin B12 deficiency Urinary incontinence, unspecified type LIPID PANEL WITH REFLEX TO DIRECT LDL Routine 02/09/2025 11:10 AM EDT Seizure disorder ([facility] V24, [facility] V28) Tremor Primary hypertension Vitamin B12 deficiency Urinary incontinence, unspecified type DEPRESSION SCREENING Routine 07/30/2024 from Last 3 Months or Most Recently Relevant to Health Maintenance Results * (ABNORMAL) Lipid panel with reflex to direct LDL (02/09/2025 11:10 AM EDT) Cholesterol 202(H) 0 - 200 mg/dL LAB CHEMISTRY METHOD 02/09/2025 3:19 PM EDT [facility] Triglycerides 126 0 - 150 mg/dL LAB CHEMISTRY METHOD 02/09/2025 3:19 PM T [facility] HDL 53 >=40 mg/dL LAB CHEMISTRY METHOD 02/09/2025 3:19 PM T [facility] LDL Calculated 124(H) 0 - 100 mg/dL LAB CHEMISTRY METHOD 02/09/2025 3:19 PM [facility] VLDL Cholesterol Stefano 25.2 mg/dL LAB CHEMISTRY METHOD 02/09/2025 3:19 PM EDT [facility] Non HDL Chol. (LDL+VLDL) 149(H) <145 mg/dL LAB CHEMISTRY METHOD 02/09/2025 3:19 PM EDT [facility] Chol/HDL Ratio 3.8 0.0 - 4.4 LAB CHEMISTRY METHOD 02/09/2025 3:19 PM [facility] Blood Venous blood specimen / Unknown Venipuncture / Unknown 02/09/2025 11:10 AM EDT 02/09/2025 11:34 AM EDT us Lisa Graves MD LAB BLOOD ORDERABLES Final Res ult [facility] [address] [place] [address], * Comprehensive metabolic panel (02/09/2025 11:10 AM EDT) Sodium 137 133 - 145 mmol/L LAB CHEMISTRY METHOD 02/09/2025 3:19 PM [facility] Potassium 4.1 3.5 - 5.5 mmol/L LAB CHEMISTRY METHOD 02/09/2025 3:19 PM [facility] Chloride 106 96 - 110 mmol/L LAB CHEMISTRY METHOD 02/09/2025 3:19 PM [facility] CO2 24 21 - 32 mmol/L LAB CHEMISTRY METHOD 02/09/2025 3:19 PM [facility] Anion Gap 7 3 - 11 LAB CHEMISTRY METHOD 02/09/2025 3:19 PM [facility] Glucose 83 70 - 100 mg/dL LAB CHEMISTRY METHOD 02/09/2025 3:19 PM [facility] BUN 12 5 - 25 mg/dL LAB CHEMISTRY METHOD 02/09/2025 3:19 PM [facility] Creatinine 0.74 0.50 - 1.10 mg/dL LAB CHEMISTRY METHOD 02/09/2025 3:19 PM [facility] eGFR 83 >=60 mL/min/1. 73m2 LAB CHEMISTRY METHOD 02/09/2025 3:19 PM T [facility] Comment:Calculation based on the Chronic Kidney Disease Epidemiology Collaboration (CKD-EPI) equation refit without adjustment for race. BUN/Creatinine Ratio 16.2 LAB CHEMISTRY METHOD 02/09/2025 3:19 PM [facility] Calcium 8.9 8.5 - 10.5 mg/dL LAB CHEMISTRY METHOD 02/09/2025 3:19 PM [facility] AST (SGOT) 11 10 - 42 unit/L LAB CHEMISTRY METHOD 02/09/2025 3:19 PM [facility] ALT (SGPT) 16 10 - 60 unit/L LAB CHEMISTRY METHOD 02/09/2025 3:19 PM [facility] Alkaline Phosphatase 107 42 - 121 unit/L LAB CHEMISTRY METHOD 02/09/2025 3:19 PM [facility] Total Protein 6.3 6.0 - 8.0 g/dL LAB CHEMISTRY METHOD 02/09/2025 3:19 PM [facility] Albumin 3.5 3.2 - 5.0 g/dL LAB CHEMISTRY METHOD 02/09/2025 3:19 PM [facility] Total Bilirubin 0.4 0.0 - 1.4 mg/dL LAB CHEMISTRY METHOD 02/09/2025 3:19 PM [facility] Blood Venous blood specimen / Unknown Venipuncture / Unknown 02/09/2025 11:10 AM EDT 02/09/2025 11:34 AM EDT us Lisa Graves MD LAB BLOOD ORDERABLES Final Res ult [facility] [address] [place] [address], * Depression Screening (07/30/2024) Pathologist [facility] Depression Screening abstracted us Historical Provider HEALTH MAINTENANCE Final Result from Last 3 Months or Most Recently Relevant to Health Maintenance Insurance MEDICAID - [place] MEDICARE Care Teams Cafeteria Team Leader Relationship Specialty Start Date End Date Lisa Graves MD 175 [facility] [address] [place] [address] PCP - General Internal Medicine 08/18/18
== END 2025-08-11 14:29 | disposition home or self-care (01) ==
LOC: HO.HSMS 13:24
PROVIDERS: PCP Internal Medicine; Visit Provider Physician Assistant Medical
DX: G47.19 Other hypersomnia (principal); D50.8 Other iron deficiency anemias; R51.9 Headache, unspecified; G89.29 Other chronic pain; M81.0 Age-related osteoporosis without current pathological fracture
CPT/HCPCS: 99204

== ENCOUNTER → 2025-08-11 13:23 | Outpatient (BNVA) | payer MEDICARE, MEDICAID, SELFPAY | PROVIDERS: PCP Internal Medicine; Visit Provider Physician Assistant Medical | DX: G47.19 Other hypersomnia (principal); R25.1 Tremor, unspecified; D50.8 Other iron deficiency anemias; D51.9 Vitamin B12 deficiency anemia, unspecified; G89.29 Other chronic pain; M81.0 Age-related osteoporosis without current pathological fracture | CPT/HCPCS: 99202 ==

== ENCOUNTER → 2025-10-19 20:30 | Outpatient (BNV) | payer MEDICARE, MEDICAID, SELFPAY | PROVIDERS: Visit Provider Psychiatry & Neurology Neurology | DX: G47.33 Obstructive sleep apnea (adult) (pediatric) (principal) | CPT/HCPCS: 95810 ==

== ENCOUNTER → 2025-10-19 20:30 | Outpatient (REF) | payer MEDICARE, MEDICAID, SELFPAY ==
--- OUTSIDE RECORDS SUMMARY | 2025-10-19 22:01 | XMS_ITS | Clinical Summary ---
Author Organization [address] Address [address] [place] [address] Phone Care Team Providers Care Energy Economist Name Role Phone Lisa Graves MD Primary Care Provider Allergies Active Allergy Reactions Criticality Noted Date [...] PM EDT): Chronic obstructive pulmonar y disease ([facility] V24, [facility] V28) 08/14/2018 Assessment & Plan (06/03/2025 10:28 PM EDT): Hypertension 08/14/2018 Assessment & Plan (06/03/2025 10:28 PM EDT): Constipation 07/13/2018 IBS (irritable bowel syndrome) 07/13/2018 Seizure disorder ([facility] V24, [facility] V28) 04/17 Tremor 04/28/2018 Overview (10/25/2024): Parkinson's [...] Encounters Date Type Department Care Team Description 10/19/2025 Telephone Vascular Surgery - [place] [address] [place] [address] Red Woodruff [place] 08/05/2025 Telephone Internal Medicine - [place] [address] [place] [address] Sasha Rios MA from Last 3 Months Immunizations Immunization Administration Dates Next Due Pneumococcal conjugate 13 va lent (Prevnar 13, PCV13) 2mo and older 04/09/2016 Surgical History Surgery Date Site/Laterality Comments APPENDECTOMY PROCEDURE: HISTORICAL APPENDECTOMY COLONOSCOPY PROCEDURE: HISTORICAL COLONOSCOPY OTHER SURGICAL HISTORY PROCEDURE: HISTORY OTHER; COMMENT: Career Technical Supervisor laparoscopy with aspiration Medical History Medical History Date Comments Chronic obstructive pulmonar y disease ([facility] V24, [facility] V28) 08/14/2018 DX:Chronic obstructive pulm onary disease [...] nodules 02/07/2017 DX:Pulmonary n odules Seizure disorder ([facility] V2 4, [facility] V28) 04/28/2018 DX:Seizure disorder ([facility]) Tremor 04/28/2018 DX:Tremor Urinary incontinence 12/26/2017 DX:Urinary incontinence Vitamin B12 deficiency 04/27/2017 DX:Vitami n B12 deficiency Vitamin D deficiency 05/12/2013 DX:Vitamin D deficiency Osteoporosis 12/04/2018 DX:Osteoporosis Social History Tobacco Use Types Packs/Day Years Used Date Smoking Tobacco: Former Cigarettes 0 Q uit: 07/12/2019 Smokeless Tobacco: Never Tobacco [...] Care Team (Late st Contact Info) Description 11/07/2025 2:30 PM EST Office Visit Internal Medicine - [place] [address] [place] [phone] Lisa Graves MD [address] [place] [address] 12/22/2025 3:00 PM EST Consult Vascular Surgery - [place] [address] [place] [phone] Aadmaris Bhardwaj PA [address] [place] [phone] Health Maintenance Due Date Last Done Comments DTaP,Tdap,and Td Vaccines (1 - Tdap) 1964 Pneumococcal Vaccine: 50+ Years (2 of 2 - PPSV23, PCV20, or PCV21) 06/04/2016 04/09/2016 Falls Risk Assessment 10/26/2022 Hepatitis C Screening 10/26/2022 Osteoporosis Screening (Bone Density Screening) 10/26/2022 Social Influencers of Health Screening 10/26/2022 RSV Immunization Adult Patients (1 - 1-dose 75+ series) 2022 COVID-19 Vaccine ( - 2024-2 6 season) 2025 Influenza Vaccine (#1) 2025 Hypertension/CHF/CAD [...] Routine 02/09/2025 11:10 AM EDT Seizure disorder (CMS/HCC V24, CMS/HCC V28) Tremor Primary hypertension Vitamin B12 deficiency Urinary incontinence, unspecified type LIPID PANEL WITH REFLEX TO DIRECT LDL Routine 02/09/2025 11:10 AM EDT Seizure disorder (CMS/HCC V24, CMS/HCC V28) Tremor Primary hypertension Vitamin B12 deficiency Urinary incontinence, unspecified type DEPRESSION SCREENING Routine 07/30/2024 from Last 3 Months or Most Recently Relevant to Health Maintenance Results * (ABNORMAL) Lipid panel with reflex to direct LDL (02/09/2025 11:10 AM EDT) [facility] Cholesterol 202(H) 0 - 200 mg/dL LAB CHEMISTRY METHOD 02/09/2025 3:19 PM EDT [facility] Triglycerides 126 0 - 150 mg/dL LAB CHEMISTRY METHOD 02/09/2025 3:19 PM T [facility] HDL 53 >=40 mg/dL LAB CHEMISTRY METHOD 02/09/2025 3:19 PM [facility] LDL Calculated 124(H) 0 - 100 mg/dL LAB CHEMISTRY METHOD 02/09/2025 3:19 PM [facility] VLDL Cholesterol Stefano 25.2 mg/dL LAB CHEMISTRY METHOD 02/09/2025 3:19 PM [facility] Non HDL Chol. (LDL+VLDL) 149(H) <145 mg/dL LAB CHEMISTRY METHOD 02/09/2025 3:19 PM [facility] Chol/HDL Ratio 3.8 0.0 - 4.4 LAB CHEMISTRY METHOD 02/09/2025 3:19 PM [facility] Blood Venous blood specimen / Unknown Venipuncture / Unknown 02/09/2025 11:10 AM EDT 02/09/2025 11:34 AM EDT us Lisa Graves MD LAB BLOOD ORDERABLES Final Res ult [facility] [address] [place] [address], * Comprehensive metabolic panel (02/09/2025 11:10 AM EDT) Sodium 137 133 - 145 mmol/L LAB CHEMISTRY METHOD 02/09/2025 3:19 PM [facility] Potassium 4.1 3.5 - 5.5 mmol/L LAB CHEMISTRY METHOD 02/09/2025 3:19 PM [facility] Chloride 106 96 - 110 mmol/L LAB CHEMISTRY METHOD 02/09/2025 3:19 PM [facility] CO2 24 21 - 32 mmol/L LAB CHEMISTRY METHOD 02/09/2025 3:19 PM [facility] Anion Gap 7 3 - 11 LAB CHEMISTRY METHOD 02/09/2025 3:19 PM [facility] Glucose 83 70 - 100 mg/dL LAB CHEMISTRY METHOD 02/09/2025 3:19 PM [facility] BUN 12 5 - 25 mg/dL LAB CHEMISTRY METHOD 02/09/2025 3:19 PM [facility] Creatinine 0.74 0.50 - 1.10 mg/dL LAB CHEMISTRY METHOD 02/09/2025 3:19 PM [facility] eGFR 83 >=60 mL/min/1. 73m2 LAB CHEMISTRY METHOD 02/09/2025 3:19 PM [facility] Comment:Calculation based on the Chronic Kidney Disease Epidemiology Collaboration (CKD-EPI) equation refit without adjustment for race. BUN/Creatinine Ratio 16.2 LAB CHEMISTRY METHOD 02/09/2025 3:19 PM [facility] Calcium 8.9 8.5 - 10.5 mg/dL LAB CHEMISTRY METHOD 02/09/2025 3:19 PM EDT [facility] AST (SGOT) 11 10 - 42 unit/L LAB CHEMISTRY METHOD 02/09/2025 3:19 PM EDT [facility] ALT (SGPT) 16 10 - 60 unit/L LAB CHEMISTRY METHOD 02/09/2025 3:19 PM EDT [facility] Alkaline Phosphatase 107 42 - 121 unit/L LAB CHEMISTRY METHOD 02/09/2025 3:19 PM EDT [facility] Total Protein 6.3 6.0 - 8.0 g/dL LAB CHEMISTRY METHOD 02/09/2025 3:19 PM EDT [facility] Albumin 3.5 3.2 - 5.0 g/dL LAB CHEMISTRY METHOD 02/09/2025 3:19 PM EDT [facility] Total Bilirubin 0.4 0.0 - 1.4 mg/dL LAB CHEMISTRY METHOD 02/09/2025 3:19 PM EDT [facility] Blood Venous blood specimen / Unknown Venipuncture / Unknown 02/09/2025 11:10 AM EDT 02/09/2025 11:34 AM EDT Lisa Graves MD LAB BLOOD ORDERABLES Final Res ult [facility] [address] [place] [address], * Depression Screening (07/30/2024) [facility] Depression Screening abstracted Historical Provider HEALTH MAINTENANCE Final Result from Last 3 Months or Most Recently Relevant to Health Maintenance Insurance MEDICAID - [place] MEDICARE Care Teams Energy Economist Relationship Specialty Start Date End Date Lisa Graves MD [address] [address] PCP - General Internal Medicine 08/18/18
--- OUTSIDE RECORDS SUMMARY | 2025-10-19 22:01 | XMS_ITS | Clinical Summary ---
Author Organization [facility] Prior to 04/16/25 Address [address] [place] [address] Care Team Providers Care Welder Tack Name Role Phone Lisa Graves MD Primary Care Provider [phone] Allergies Active Allergy Reactions Criticality Noted Date [...] age to complete this topic Care Teams Welder Tack Relationship Specialty Start Date End Date Lisa Graves MD [address] [phone] PCP - General Internal Medicine 01/04/19
--- OUTSIDE RECORDS SUMMARY | 2025-10-19 22:01 | XMS_ITS | Encounter Summary ---
Author Organization [facility] Address [address] [place] [address] Care Team Providers Care Correspondence School Teacher Name Role Phone Lisa Graves MD Primary Care Provider [phone] Reason for Referral * Imaging (Routine) - Authorized Specialty Diagnoses / Procedures Referred By Khadijah walsh Referred To Contact Diagnoses Carotid stenosis, bilateral Procedures Vascular US duplex carotid bilateral Santhosh Urrutia MD [address] [place] [address] Phone: tel: fax: [facility] [address] [facility] [address] [place], [place] Referral ID Status Reason Start Date Expiration Date V isits Requested Visits Authorized [id number] Authorized 10/19/2025 10/19/2026 1 1 Encounter Details Date Type Department Care Team ([facility] Contact Info) Description 10/19/2025 Telephone Vascular Surgery - [place] [address] [place] [address] Red Woodruff [place] Social History Tobacco Use Types Packs/Day Years Used Date Smoking Tobacco: Former Cigarettes 0 Q uit: 07/12/2019 Smokeless Tobacco: Never Alcohol Use Standard Drinks/Week Comments Not Currently 0 (1 standard drink = 0.6 oz pur e alcohol) Comments Unknown Sex and Gender Information Value Date Recorded Sex Assigned at Not on file Legal Sex Female 11:34 AM EST Gender Identity Not on file Sexual Orientation Not on file documented as of this encounter Progress Notes * Red Woodruff MA - 10/19/2025 9:47 AM EST Patient needs Carotid duplex, ordered, Patient rescheduled and notified. documented in this encounter Plan of Treatment Upcoming Encounters Date Type Department Care Team (Late st Contact Info) Description 11/07/2025 2:30 PM EST Office Visit Internal Medicine - [place] [address] [place] [phone] Lisa Graves MD [address] [place] [phone] 12/22/2025 3:00 PM EST Consult Vascular Surgery - [place] [address] [place] [phone] Adamaris Bhardwaj PA [address] [place] [phone] Scheduled Orders Name Type Priority Associated Diagnoses Orde r Schedule Vascular US duplex carotid bilateral Vascular Ultrasound Routine Carotid stenosis, bilateral Expected: 10/19/2025, Expires: 10/19/2026 documented as of this encounter Visit Diagnoses Diagnosis Carotid stenosis, bilateral- Primary Occlusion and stenosis of carotid artery without mention of cerebral infarction documented in this encounter Additional Health Concerns Assessment Noted Time PHQ-9 Depression Total Score: 0 06/03/20 25 2:19 PM EDT documented as of this encounter Care Teams Correspondence School Teacher Relationship Specialty Start Date End Date Lisa Graves MD [address] [place] [phone] PCP - General Internal Medicine 08/18/18 documented as of this encounter
--- OUTSIDE RECORDS SUMMARY | 2025-10-19 22:01 | XMS_ITS | Data Portability ---
Author Organization [facility], [facility] Address [address] [place] [address] Care Team Providers Care Compliance Analyst Name Role Phone KVNG NG Primary Care Provider [phone] Assessment No assessment recorded. Plan of Treatment Reminders Order Date Submit Date Provider Last Modified By Organization Details Last Modified Time Details Appointments RECHECK 15 2024 02:15P M Josh Pittman PA-C Not available Not available Not available Lab None recorded. Referral None recorded. Procedures None recorded. Surgeries None recorded. Imaging None recorded. Medication Orders diclofena c 1 % topical gel 2024 025 bpuchalski 1 [id number], [address] [place] [address], [id number], 04/28/2025 08:56:36 diclofena c 1 % topical gel 2024 025 FREDY [id number], [address] [place] [address], [address], 11/18/2024 15:23:28 Patient TargetsNo targets recorded. Patient InstructionsNo instructions recorded. Reason for Referral None Reported. Problems Name Problem SNOMED Code Status Onset Date Resolution Date Notes Provider Name and Address Organization Details Recorded Time No complaints 909031338 Active Status : 'A'; Not Available [facility] 4 09:26:52 Problem Notes None recorded. Procedures Surgical History Date Name Laterality Status Provider Name and Address Organization Details Recorded Time 5 Knee Kenalog 40 1cc Injection, Bilateral completed Josh Pittman PA-C [address] [facility] [address] [facility], [place], [address], [facility] 07/29/2025 14:12:04 5 Knee Kenalog 40 1cc Injection, Bilateral completed Josh Pittman PA-C [address], [place], [address], [facility] 04/21/2025 16:07:08 5 Knee Kenalog 40 1cc Injection, Bilateral completed Ingrid Nichols PA-C [address], [place], [address], [facility] 11/18/2024 15:22:45 4 Knee Kenalog 40 1cc Injection, Bilateral completed Ingrid Nichols PA-C [address] [facility], [place], [address], [facility] 07/27/2024 13:27:08 4 Knee Kenalog 40 1cc Injection, Bilateral completed Ingrid Nichols PA-C [address], [place], [address], [facility] 04/23/2024 13:46:02 Imaging Results None recorded. Procedure Notes None recorded. Medical Equipment None Reported. Allergies Allergen ID Allergen Name Allergen Category Reaction Reaction Severity Criticality Documentation Date Start Date Code Code System Note Provider Name and Address Organization Details Recorded Time 94885 aspirin medicatio n Not available Not available Not available 01/19/20242014 1191 RxNorm Aller gyRea ction : 'Skin React ion'; Not Available [facility] 4 12:44:51 Medications Name Sig Start Date Stop Date Status Note LastModified by Organization Details LastModified Time atorvastati n 20 mg tablet TAKE 1 TABLET BY MOUTH EVERY DAY active Not Available Not Available No t Available trazodone 50 mg tablet TAKE 1 TABLET BY MOUTH EVERYDAY AT BEDTIME active Not Available Not Available No t Available azithromyci n 250 mg tablet TAKE 2 TABLETS BY MOUTH TODAY, THEN TAKE 1 TABLET DAILY FOR 4 DAYS DIRECTED active Not Available Not Available No [...] Not Available Not Available No t Available mirtazapine 7.5 mg tablet TAKE 1 TABLET BY MOUTH AT BEDTIME active Not Available Not Available No t Available levetiracet am 1,000 mg tablet TAKE 1 TABLET BY MOUTH [...] Updated DateTime 11/18/2024 158.75 cm 20.7 kg/m2 13578.12 g Nilo Irvin [facility] 11/18/2024 14:49:23 Date Recorded Body height Body mass index (BMI) Body weight Provider Name and Address Organization Details Last Updated DateTime 04/21/2025 158.75 cm 20.7 kg/m2 30490.12 g [facility] 04/21/2025 15:21:02 Date Recorded Body height Provider Name an d Address Organization Details Last Updated DateTime 04/23/2024 158.75 cm JALEN SRINIVASAN [facility] 04/23/2024 13:24:43 Date Recorded Body height Provider Name an d Address Organization Details Last Updated DateTime 07/27/2024 158.75 cm alexia nelson [facility] 07/27/2024 13:03:19 Date Recorded Body height Body mass index (BMI) Body weight Provider Name and Address Organization Details Last Updated DateTime 07/29/2025 158.75 cm 20.7 kg/m2 54592.12 g [facility] 07/29/2025 14:00:37 Social History None recorded. Functional Status None recorded. Mental Status None recorded. Family History Nothing Reported. Medical History Condition Response Allergies/Hayfever N Coronary Artery Disease N Breathing or lung disorders Y Anxiety/Depression N Emphysema N Nerve Disorders N Thyroid Problems N COPD N Pacemaker N Anemia N Kidney/Bladder Problems N Vascular Disease N Heart Trouble N Heart Attack (PR) N Gastrointestinal Disease N Cholesterol N Diabetes N Autoimmune disease N Bleeding Disorder N Inflammatory Joint disease N Orthotics N Arthritis Y Seizures/Epilepsy N Blood Clot N AIDS/HIV N Congestive Heart Failure (CHF) N Acid Reflux (GERD) N Cancer N Stroke N Asthma N Circulation Problems N Peripheral Vascular Disease N Sleep Apnea Y Hepatitis N Heart Disease N Rheumatoid Arthritis N Arrhythmia N Pulmonary Embolism N Headaches Y Fibromyalgia N Hypertension Y Osteoporosis N Gynecological HistoryNo gynecological history recorded. Obstetrics History GPAL:G 0 P 0 0 0 0 Past Encounters Encounter ID Performer Location Encounter Start Date Encounter Closed Date Diagnosis/Indication Diagnosis SNOMED-CT Code Diagnosis ICD10 Code Diagnosis IMO Codes Diagnosis Note [id number] Ingrid Nichols PA-C [place] [address] [place] [address] 04/23/2024 13:17:02 05/24/2024 07:30:41 Bilateral osteoarthritis of knees 5536662125 46190 M17.0 [id number] Ingrid Nichols PA-C [place] [address] [place] [address] 07/27/2024 12:42:56 08/17/2024 13:45:02 Bilateral osteoarthritis of knees [id number] 65800 M17.0 [id number] Ingrid Nichols PA-C [facility] [place] [address] [place] [address] 11/18/2024 14:31:45 12/01/2024 15:39:57 Primary gonarthrosis, bilateral 873287386 M17.0 [id number] Josh Pittman PA-C [facility] [place] [address] [place] [address] 04/21/2025 15:06:11 05/02/2025 14:42:05 Primary gonarthrosis, bilateral 428889834 M17.0 [id number] Josh Pittman PA-C [facility] [place] [address] [place] [address] 07/29/2025 13:46:19 08/08/2025 11:42:27 Primary gonarthrosis, bilateral 638710394 M17.0 [id number] You have been provided with a cortisone injection in order to reduce the pain and inflammati on that you are experienci ng. The injection consists of two medication s. Cortisone (an anti-infla mmatory that will take 48-72 hours to take effect) and Lidocaine (a numbing agent that will last 2-3 hours). Please note that not everyone will have a lasting response following the injection. PATIENT INSTRUCTIO NSOnce the Lidocaine wears off, you may have an increase in your pain. I recommend icing the affected area for 20 minutes 3-4 times per day.It is recommende d that you refrain from any high level activities using the joint or limb that was injected for approximat christy 24-48 hours. Normal day-to-day activities are generally not a problem.PO SSIBLE SIDE EFFECTSInd ividuals with dark complexion s may experience some skin discolorat ion locally at the site of the injection. There is the possibilit y of an increase in discomfort within 48 hours following the injection. This is called a f lare . To help minimize the chances of this, please see the post-injec tion instructio ns above.Ther e is a less than 1% chance of an infection. If you notice any signs of infection (redness, warmth, drainage, fever greater than 100 degrees) please call our office or contact us through the portal JADIEL. Health Concerns Section Related Observation LastModified by Organization Detai ls LastModified Time None Recorded Concern Status LastModified by Organization Details LastModified Time None Recorded Advance Directives Directive None Recorded Payers Insurance Date Sequence Insurance Name Policy Number Policy Tinajero Covered Member ID Tinajero Member ID Guarantor Name 07/29/2025 1 MEDICARE B-[place]: [facility] [employer] Padmini Ferrer [id number] Padmini Ferrer 11/16/2024 1 [place] [employer] Padmini Ferrer [id number] Padmini Ferrer 07/29/2025 2 [place] [facility] Padmini Ferrer [id number] Padmini Ferrer Notes Date Note Type Note Provider Name [...] every 3 months. Ingrid Nichols PA-C [address], [address], [facility] 04/23/2024 13:46:19 07/27/2024 text/html I am [...] repeated as often as every [address]. [address], [place], [address], [facility] 07/27/2024 13:27:40 11/18/2024 text/html I am [...] every 3 months. Ingrid Nichols PA-C [address], [place], [address], [facility] 11/18/2024 15:24:01 04/21/2025 text/html I am [...] total joint arthroplasty. Josh Pittman PA-C [address], [place], [address], [facility] 04/21/2025 16:07:27 07/29/2025 text/html . I am seeing the patient today under the supervision of Dr. Hdez Who was available but who did not [...] and nontender. 4+/5 strength of knee flexion extension.Impression : Osteoarthritis Plan: Nature of the diagnosis discussed with the patient today. Both surgical and nonsurgical options were reviewed. This point recommend a repeat cortisone injection. Patient does not wish to pursue surgical intervention. Patient agreed. anterior lateral portal was used. See prodecure note. Follow-up with us in 3 months for discussion of continued conservative management versus total joint arthroplasty. Josh Pittman PA-C [address], [place], [address], [place] [facility] 07/29/2025 14:12:49 OBGyn Episode No OBEpisode recorded.
--- OUTSIDE RECORDS SUMMARY | 2025-10-19 22:01 | XMS_ITS | Continuity of Care Document ---
Author Organization [facility], [facility] [address] floor Address [address] [place] [address] Care Team Providers Care R Programmer Name Role Phone KVNG NG Primary Care Provider Assessment No assessment recorded. Plan of Treatment Reminders Order Date Submit Date Provider Last Modified By Organization Details Last Modified Time Details Appointments RECHECK 15 2024 02:15P M Josh Pittman PA-C Not available Not available Not available Lab None recorded . Referral None recorded . Procedures None recorded . Surgeries None recorded . Imaging None recorded . Medication Orders None recorded . Patient TargetsNo targets recorded. Patient InstructionsNo instructions recorded. Reason for Referral None Reported. Problems Name Problem SNOMED Code Status Onset Date Resolution Date Notes Provider Name and Address Organization Details Recorded Time No complaints 609128974 Active Status : 'A'; Not Available [facility] 4 09:26:52 Problem Notes None recorded. Procedures Surgical History Date Name Laterality Status Provider Name and Address Organization Details Recorded Time 5 Knee Kenalog 40 1cc Injection, Bilateral completed Josh Pittman PA-C [address], [place], [address], [facility] 07/29/2025 14:12:04 5 Knee Kenalog 40 1cc Injection, Bilateral completed Josh Pittman PA-C [address], [place], [address], [facility] 04/21/2025 16:07:08 5 Knee Kenalog 40 1cc Injection, Bilateral completed Ingrid Nichols PA-C [address], [place], [address], [facility] 11/18/2024 15:22:45 4 Knee Kenalog 40 1cc Injection, Bilateral completed Ingrid Nichols PA-C [address], [place], [address], [facility] 07/27/2024 13:27:08 4 Knee Kenalog 40 1cc Injection, Bilateral completed Ingrid Nichols PA-C [address], [place], [address], [facility] 04/23/2024 13:46:02 Imaging Results None recorded. Procedure Notes None recorded. Medical Equipment None Reported. Allergies Allergen ID Allergen Name Allergen Category Reaction Reaction Severity Criticality Documentation Date Start Date Code Code System Note Provider Name and Address Organization Details Recorded Time 13339 aspirin medicatio n Not available Not available Not available 01/19/20242014 1191 RxNorm Aller gyRea ction : 'Skin React ion'; Not Available [facility] 4 12:44:51 Medications Name Sig Start [...] Updated DateTime 07/29/2025 158.75 cm 20.7 kg/m2 55939.12 g Melany Hirsch [place] [facility] [place] [facility] 07/29/2025 14:00:37 Social History None recorded. Functional Status None recorded. Mental Status None recorded. Family History Nothing Reported. Medical History Condition Response Allergies/Hayfever N Coronary Artery Disease N Anxiety/Depression N Breathing or lung disorders Y Emphysema N Nerve Disorders N Thyroid Problems N COPD N Pacemaker N Anemia N Kidney/Bladder Problems N Vascular Disease N Heart Trouble N Heart Attack (NM) N Gastrointestinal Disease N Cholesterol N Diabetes N Autoimmune disease N Inflammatory Joint disease N Bleeding Disorder N Orthotics N Arthritis Y Seizures/Epilepsy N [...] ICD10 Code Diagnosis IMO Codes Diagnosis Note [id number] IR[address] [place] [address] [place] [address] 07/29/2025 13:46:19 08/08/2025 11:42:27 Primary gonarthrosis, bilateral [id number] M17.0 [id number] You have been provided with a cortisone [...] by Organization Details LastModified Time None Recorded Payers Encounter Date Sequence Insurance Name Policy Number Policy Tinajero Covered Member ID Tinajero Member ID Guarantor Name 07/29/2025 1 [place]: [employer] SERVICES Padmini Ferrer [id number] Padmini Ferrer 07/29/2025 2 [place] [employer] Padmini Ferrer [id number] Padmini Ferrer Notes Date Note Type Note Provider Name and Address Organization Details Recorded Time 07/29/2025 text/html . I am seeing the [...] total joint arthroplasty. Josh Pittman PA-C [address] [facility] [address], [place], [address], [facility] [place] [facility] 07/29/2025 14:12:49 OBGyn Episode No OBEpisode recorded.
--- OUTSIDE RECORDS SUMMARY | 2025-10-19 22:01 | XMS_ITS | Encounter Summary ---
Author Organization [facility] Address [address] [place] [address] Care Team Providers Care Stock Clerk Self Service Store Name Role Phone Lisa Graves MD Primary Care Provider [phone] Encounter Details Date Type Department Care Team (Late Contact Info) Description 12/02/2024 Lab Requisition [facility] [address] [facility] [place] [address] Nicki Gentile PA [address] [place] [address] Frequency of micturition Social History Tobacco Use [...] PM EST Office Visit Internal Medicine - [place] [address] [facility] [address] [place] [address] Lisa Graves MD [address] [place] [phone] 12/22/2025 3:00 PM EST Consult Vascular Surgery - [place] [address] [facility] [address] [place] [address] Adamaris Bhardwaj PA [address] [place] [address] [phone] (work) documented as of this encounter Procedures Procedure Name Priority Date/Time Associated Diagnosis Comments CULTURE URINE Routine 12/02/2024 1:00 PM EST Frequency of micturition documented in this encounter Results * (ABNORMAL) Culture urine (12/02/2024 1:00 PM EST) Culture, Urine 50,000-100, 000 CFU/mL Proteus mirabilis(A ) TAMI 12/04/2024 10:48 AM EST [facility] Comment: Edited result: Previously reported [...] MICROBIOLOGY - GENERAL ORD ERABLES Final Result [facility] [address] [place] [address], documented in this encounter Visit Diagnoses Diagnosis Frequency of micturition Urinary frequency documented in this encounter Care Teams Stock Clerk [employer] Relationship Specialty Start Date End Date Lisa Graves MD 175 [facility] 200 [place] [address] PCP - General Internal Medicine 08/18/18 documented as of this encounter
== END ==
LOC: HO.SL 20:30
PROVIDERS: Visit Provider Physician Assistant Medical
DX: G47.33 Obstructive sleep apnea (adult) (pediatric) (principal); G47.19 Other hypersomnia; M81.0 Age-related osteoporosis without current pathological fracture
CPT/HCPCS: 95810